=== PATIENT | female | born 1970 | race African-American/Black ===

== ENCOUNTER 2016-04-01 07:19 | Inpatient (IN) | payer MEDICAID ==
[~2016-04-01] VITALS: Ht 172.7 cm; Wt 133.1 kg
[~2016-04-01 07:19] MED LIST: LISI40TA PO; TRIA50TA2 OR
[2016-04-01] MEDS ORDERED: ASPirin 81 mg TAB PO ONE (07:45)
[2016-04-01] MEDS ORDERED: SODIUM CHLORIDE 0.9% 1,000 ML IV ONE (07:45)
[2016-04-01 08:15] LABS: DEFINITIVE VIEW TRANSMISSION; Hematocrit 34.5 % (36.0-46.0); Hemoglobin 9.9 g/dL (12.2-16.2); Mean Corpuscular Hemoglobin 15.6 pg (28.0-32.0); Mean Corpuscular Hgb Conc. 28.8 g/dL (32.0-36.0); Mean Corpuscular Volume 54.3 fL (80.0-100.0); Mean Platelet Volume 7.6 fL (7.4-10.4); Platelet Count (auto) 224 10^3/uL (140-450); SUSPECT VIEW TRANSMISSION
[2016-04-01 08:18] LABS: INR 1.08 (0.9-1.15); Prothrombin Time 11.1 sec (9.37-12.3)
[2016-04-01 08:31] LABS: Red Cell Distribution Width 24.6 % (11.6-16.0)
[2016-04-01 08:33] LABS: Metamyelocytes % 0; Myelocytes % 0; Promyelocytes % 0; Reactive Lymphocytes 0
[2016-04-01 08:53] LABS: Albumin 3.6 g/dL (3.4-5.0); Calcium 8.4 mg/dL (8.5-10.1); Magnesium 1.8 mg/dL (1.6-2.6); Potassium 3.6 mmol/L (3.5-5.1); Total Protein 7.5 g/dL (6.4-8.2)
[2016-04-01] MEDS ORDERED: FUROSEMIDE 40 MG/4 ML VIAL IV ONE (09:15)
[2016-04-01 09:27] LABS: B-Type Natriuretic Peptide 230.11 pg/mL (0-100); Temperature: 22.9 C (20.0-25.0)
[2016-04-01] MEDS ORDERED: NITROGLYCERIN 0.4 MG SL TAB SL ONE (10:00)
[2016-04-01 10:33] LABS: Microcytosis Marked
[2016-04-01 10:35] LABS: Anisocytosis Marked; Hypochromia Marked
[2016-04-01 10:36] LABS: Ovalocytes FEW; Platelet Estimate Adequate; Tear Drop Cells FEW
[2016-04-01 10:37] LABS: Large Platelets FEW
[2016-04-01] MEDS ORDERED: LORazepam 0.5 MG TAB PO PRN (11:15)
[2016-04-01] MEDS ORDERED: ZOLPIDEM TARTRATE 5 MG TAB PO PRN (11:15)
[2016-04-01] MEDS ORDERED: NITROGLYCERIN 0.4 MG SL TAB SL PRN ×2 (11:15)
[2016-04-01] MEDS ORDERED: ONDANSETRON HCL 4 MG/2 ML VIAL IV PRN (11:15)
[2016-04-01] MEDS ORDERED: MORPHINE SULF INJ 2 MG/ML SYRINGE 1ML IV PRN ×2 (11:15)
[2016-04-01] MEDS ORDERED: POTASSIUM CHL 10 Meq TABLET PO ONE (11:30)
[2016-04-01] MEDS: DOCUSATE SOD 100 MG CAP PO SCH (12:42)
[2016-04-01] MEDS: CARVEDILOL 3.125 MG TAB PO SCH ×2 (12:42→22:24)
[2016-04-01] MEDS: LISINOPRIL 20 MG TAB PO SCH (12:44)
[2016-04-01] MEDS: CLOPIDOGREL BISULFATE 75 MG TAB PO SCH (12:44)
[2016-04-01] MEDS: HCTZ 25 MG TAB PO SCH (12:44)
[2016-04-01] MEDS: ENOXAPARIN SOD 100 MG/1 ML SYRINGE SC SCH ×2 (12:45→22:23)
[2016-04-01] MEDS: SODIUM CHLOR 0.9% PF (SALINE LOCK) 10ML VIAL IV SCH ×2 (14:42→22:23)
[2016-04-01 17:30] VITALS: BP 163/99
[2016-04-01 18:19] VITALS: BP 163/99
[2016-04-01 20:00] VITALS: BP 134/73
[2016-04-01] MEDS ORDERED: INFLUENZA QUAD 2016-2017 0.5 ML SYRG IM ONE (20:45)
[2016-04-01] MEDS: ATORVASTATIN 20 MG TAB PO SCH ×2 (22:00→22:23)
[2016-04-02] VITALS: BP 132/74
[2016-04-02 04:00] VITALS: BP 132/97
[2016-04-02 05:38] LABS: DEFINITIVE VIEW TRANSMISSION; Hematocrit 31.7 % (36.0-46.0); Hemoglobin 9.1 g/dL (12.2-16.2); Mean Corpuscular Hemoglobin 15.5 pg (28.0-32.0); Mean Corpuscular Hgb Conc. 28.6 g/dL (32.0-36.0); Mean Corpuscular Volume 54.2 fL (80.0-100.0); Mean Platelet Volume 7.9 fL (7.4-10.4); Platelet Count (auto) 209 10^3/uL (140-450); White Blood Cell 5.3 10^3/uL (4.4-10.8)
[2016-04-02 06:02] LABS: Red Cell Distribution Width 24.5 % (11.6-16.0)
[2016-04-02 06:03] LABS: Albumin 3.2 g/dL (3.4-5.0); BUN/Creatinine Ratio 18.8; Bilirubin, Total 0.7 mg/dL (0.2-1.0); Calcium 8.2 mg/dL (8.5-10.1); Magnesium 1.8 mg/dL (1.6-2.6); Metamyelocytes % 0; Myelocytes % 0; Potassium 3.8 mmol/L (3.5-5.1); Promyelocytes % 0; Reactive Lymphocytes 0; Total Protein 6.8 g/dL (6.4-8.2)
[2016-04-02] MEDS: SODIUM CHLOR 0.9% PF (SALINE LOCK) 10ML VIAL IV SCH ×2 (06:12→16:14)
[2016-04-02 06:52] LABS: Urine Bilirubin Negative (Negative); Urine Blood Negative /uL (Negative); Urine Color Yellow (Yellow); Urine Glucose Normal (Normal); Urine Ketone Negative (Negative); Urine Nitrite Negative (Negative); Urine RBC <1 /hpf (0 - 4); Urine Squamous Epithelial Cell FEW /hpf (<5); Urine pH 5.5 (5.0-8.0)
[2016-04-02 08:00] VITALS: BP 160/104
[2016-04-02] MEDS: CLOPIDOGREL BISULFATE 75 MG TAB PO SCH (09:35)
[2016-04-02] MEDS: ENOXAPARIN SOD 100 MG/1 ML SYRINGE SC SCH (09:35)
[2016-04-02] MEDS: LISINOPRIL 20 MG TAB PO SCH (09:35)
[2016-04-02] MEDS: DOCUSATE SOD 100 MG CAP PO SCH (09:36)
[2016-04-02] MEDS: HCTZ 25 MG TAB PO SCH (09:36)
[2016-04-02] MEDS: CARVEDILOL 3.125 MG TAB PO SCH (09:36)
[2016-04-02] MEDS ORDERED: ASPirin 81 mg TAB PO SCH (10:00)
[2016-04-02] MEDS ORDERED: LOSARTAN POTASSIUM 25 MG TAB PO SCH (10:00)
[2016-04-02] MEDS ORDERED: POTASSIUM CHL 10 Meq TABLET PO SCH (10:00)
[2016-04-02] MEDS ORDERED: HCTZ 25 MG TAB PO SCH (10:00)
[2016-04-02 11:41] LABS: Anisocytosis Moderate; Hypochromia Marked; Microcytosis Marked; Ovalocytes FEW; Platelet Estimate Adequate; Tear Drop Cells FEW
[2016-04-02 12:00] VITALS: BP 159/92
[2016-04-02] MEDS: cloNIDine HCL 0.1 MG TAB PO PRN ×2 (12:08→16:36)
[2016-04-02 17:39] VITALS: BP 136/91
== END 2016-04-02 18:28 | disposition home or self-care (01) | DRG 199 ==
LOC: ER 07:19 → TELE 07:20 → DOU IN ICU 17:57
PROVIDERS: ADMIT Internal Medicine; ATTEND Internal Medicine
DX: I16.0 Hypertensive urgency (principal); I24.8 Other forms of acute ischemic heart disease; Z68.41 Body mass index [BMI] 40.0-44.9, adult; E83.51 Hypocalcemia; E66.01 Morbid (severe) obesity due to excess calories; D50.9 Iron deficiency anemia, unspecified; I25.10 Atherosclerotic heart disease of native coronary artery without angina pectoris; Z86.73 Personal history of transient ischemic attack (TIA), and cerebral infarction without residual deficits; Z98.890 Other specified postprocedural states; Z88.6 Allergy status to analgesic agent; Z91.040 Latex allergy status; Z71.3 Dietary counseling and surveillance; Z83.3 Family history of diabetes mellitus; Z82.49 Family history of ischemic heart disease and other diseases of the circulatory system; Z23 Encounter for immunization
CPT/HCPCS: 36415; 71010; 80053; 80061; 81001; 83735; 83880; 84443; 84484; 85007; 85027; 85379; 85610; 85730; 87081; 87086; 87088; 87186; 93005; 93306; 94761; 96361; 96374